=== PATIENT | female | born 1990 | race African-American/Black ===

== ENCOUNTER 2016-12-01 07:43 | Emergency (ER) | payer OTHER ==
[2016-12-01] MEDS ORDERED: Ibuprofen 200 MG TAB ONE (07:53)
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
== END 2016-12-01 09:13 | disposition home or self-care (01) ==
LOC: MERGE 07:43 → ERS 07:43
DX: S16.1XXA Strain of muscle, fascia and tendon at neck level, initial encounter (principal); I10 Essential (primary) hypertension; V43.52XA Car driver injured in collision with other type car in traffic accident, initial encounter
CPT/HCPCS: 72040